=== PATIENT | female | born 1990 | race Caucasian/White ===

== ENCOUNTER 2023-08-18 08:29 | Inpatient (IN) ==
[2023-08-18] MEDS ORDERED: LIDOCAINE 1% LOCAL 20 ML VIAL INFIL PRN (09:16)
[2023-08-18] MEDS ORDERED: OXYTOCIN 30 UNITS/500 ML BAG IV PRN ×2 (09:16→15:06)
[2023-08-18] MEDS ORDERED: miSOPROStoL 50 MCG TAB PO ONE (09:16)
[2023-08-18 10:12] LABS: Hematocrit (blood only) 40.4 % (37.0-47.0); Hemoglobin 14.8 g/dl (12.0-16.0); Mean Corpuscular Hemoglobin 32.7 pg (25.0-34.0); Mean Corpuscular Hgb Conc 36.6 g/dL (32.0-36.0); Mean Corpuscular Volume 89.4 fL (80.0-100.0); Mean Platelet Volume 11.2 fL (9.4-12.4); Platelet Count 214 K/uL (130-400); RDW Coefficient of Variation 12.7 % (11.5-14.5); RDW Standard Deviation 41.8 fL (36.4-46.3); Red Blood Count 4.52 M/uL (4.20-5.40); White Blood Count 14.93 K/ul (4.8-10.8)
[2023-08-18] MEDS: LACTATED RINGER'S 1,000 ML IV PRN ×2 (11:40→12:55)
[2023-08-18] MEDS ORDERED: fentaNYL citrate PF 100 MCG/2 ML VIAL ONE (11:59)
[2023-08-18] MEDS ORDERED: SODIUM CHLORIDE 0.9% PF INJ 10 ML VIAL ONE (11:59)
[2023-08-18] MEDS ORDERED: ePHEDrine sulfate 50 MG/ML AMP ONE (11:59)
[2023-08-18] MEDS ORDERED: fentaNYL 2MCG/ML ROPIVACAINE 1.25MG/ML 100 ML BAG EPI ONE (12:00)
[2023-08-18] MEDS ORDERED: LIDOCAINE 2%/EPINEPHRINE 1:200,000 20 ML PF ONE (12:00)
[2023-08-18] MEDS ORDERED: BUPIVACAINE 0.25% PF 30 ML VIAL ONE (12:00)
[2023-08-18] MEDS ORDERED: LIDOCAINE 2%/EPINEPHRINE 1:200,000 20 ML PF EPI STA (12:31)
[2023-08-18] MEDS ORDERED: ePHEDrine sulfate 50 MG/ML AMP IV PRN (12:31)
[2023-08-18] MEDS ORDERED: LIDOCAINE 2% MPF LOCAL 5 ML VIAL EPI PRN (12:31)
[2023-08-18] MEDS ORDERED: NALBUPHINE HCL INJ 10 MG/ML AMP IV PRN (12:31)
[2023-08-18] MEDS ORDERED: NALOXONE HCL 0.4 MG/1 ML VIAL/CARP IV PRN (12:31)
[2023-08-18] MEDS ORDERED: BUPIVACAINE 0.25% PF 30 ML VIAL EPI STA (12:31)
[2023-08-18] MEDS ORDERED: ROPIVACAINE 0.5% PF 5 MG/ML 20 ML VIAL EPI PRN (12:31)
[2023-08-18] MEDS ORDERED: SODIUM CHLORIDE 0.9% PF INJ 10 ML VIAL EPI STA (12:31)
[2023-08-18] MEDS ORDERED: fentaNYL citrate PF 100 MCG/2 ML VIAL EPI PRN (12:31)
[2023-08-18] MEDS ORDERED: SODIUM CHLORIDE 0.9% PF INJ 10 ML VIAL EPI PRN (12:31)
[2023-08-18] MEDS ORDERED: fentaNYL citrate PF 100 MCG/2 ML VIAL EPI STA (12:31)
[2023-08-18] MEDS ORDERED: diphenhydrAMINE 50 MG/ML VIAL IV PRN (12:31)
[2023-08-18] MEDS ORDERED: fentaNYL 2MCG/ML ROPIVACAINE 1.25MG/ML 100 ML BAG EPI PRN (12:31)
[2023-08-18] MEDS ORDERED: BUPIVACAINE 0.25% PF 30 ML VIAL EPI PRN (12:31)
[2023-08-18] MEDS ORDERED: ONDANSETRON INJ 2 MG/ML 2 ML VIAL IV PRN (12:31)
[2023-08-18] MEDS ORDERED: NALOXONE HCL 1 MG in SODIUM CHLORIDE 0.9% 1,000 ML IV PRN (12:31)
--- NOTE | 2023-08-18 12:36 | Anesthesiology Consultation ---
Date of Service August 18, 2023 Assessment & Plan Chart Review Chart Review: Acceptable Risk for Labor Epidural Consults Requested none ASA ASA2 Proposed Anesthesia Anesthesia Type: Labor Epidural Risk / Benefits Reviewed With: PT / POA / Parent / Guardian, Accepts Plan and Informed Consent Obtained History Height/Weight Height: 5 ft 7 in Weight: 87.09 kg Allergies Allergy/AdvReac Type Severity Reaction Status Date / Time No Known Allergies Allergy Unverified 08/18/23 08:43 Medications Home Medications Medication Instructions Recorded Confirmed Last Taken + DHA 08/18/23 08/17/23 Active Medications Generic Name Dose Route Start Last Admin Trade Name Freq PRN Reason Stop Dose Admin Lactated Ringer's 1,000 mls @ 125 mls/hr 08/18/23 09:16 08/18/23 11:40 Lr IV 08/20/23 09:15 999 mls/hr .Q8H PRN Administration L&D Protocol Protocol Exercise / Class Metabolic Activity II 4-5 Yardwork/Stairs/Walk up hill Past Family History Family History Father Hypertension Cancer Grandmother (Maternal) Cancer Past Surgical History Surgical History S/P LASIK surgery of both eyes [place] teeth extracted Past Anesthesia History No Hx of Anesthesia Complications and No Family Hx of Anesthesia Complications History of PONV No Hx of PONV and No Hx of Motion Sickness Social History Smoking Status: Never smoker Hx Alcohol Use: No Hx Substance Use: No Physical Exam Vital Signs Last Vital Signs Temp 98.2 F 08/18/23 12:33 Pulse 58 L 08/18/23 12:31 Resp 18 08/18/23 12:33 BP 162/85 H 08/18/23 12:11 Pulse Ox 98 08/18/23 12:31 ENMT Mouth: no dentition abnormality Thyromental Distance: > or= 3.5 Finger Breadths Mallampati Class: II Neck normal visual inspection Respiratory normal respiratory effort Auscultation: lungs clear to auscultation bilaterally Cardiovascular Rate/Rhythm: regular rate and regular rhythm Testing Laboratory Results 08/18/23 09:39
[2023-08-18] MEDS ORDERED: ACETAMINOPHEN W/CODEINE #3 1 TAB PO PRN (15:06)
[2023-08-18] MEDS ORDERED: DIPHTHERIA/TETANUS/PERTUSSIS Vaccine (Tdap, Age 7+yrs) 0.5mL SYR/VL IM ONE (15:06)
[2023-08-18] MEDS ORDERED: HYDROCORTISONE ACETATE 25 MG SUPP PR PRN (15:06)
[2023-08-18] MEDS ORDERED: BENZOCAINE 20% SPRY 85 APPLN/85 GM CAN EXT PRN (15:06)
[2023-08-18] MEDS ORDERED: oxyCODONE/ACETAMINOPHEN 5mg/325mg TAB PO PRN (15:06)
[2023-08-18] MEDS ORDERED: bisacodyL 10 MG SUPP PR PRN (15:06)
[2023-08-18] MEDS ORDERED: ACETAMINOPHEN 325 MG TAB PO PRN (15:06)
[2023-08-18] MEDS: IBUPROFEN 600 MG TAB PO PRN ×2 (17:03→23:36)
--- NOTE | 2023-08-18 18:33 | Anesthesia Procedure Note ---
Date of Service August 18, 2023 Anesthesia Post Epidural Note Vital Signs Vital Signs: Temp Pulse Resp BP Pulse Ox O2 Del Method 98.1 F 62 18 126/80 97 Room Air 08/18/23 17:25 08/18/23 17:25 08/18/23 17:25 08/18/23 17:25 08/18/23 17:25 08/18/23 17:25 Pain Intensity Abdomen: Pain Intensity: 8 Notes Mental Status: alert / awake / arousable and participated in evaluation Nausea / Vomiting: adequately controlled Pain: adequately controlled Airway Patency, RR, SpO2: stable & adequate BP & HR: stable & adequate Hydration State: stable & adequate Neuraxial Anesthesia: was administered and sensory block is resolving Anesthetic Complications: no major complications apparent and Pt Satisfied with anesthetic care Epidural: Removed without complications and With tip intact
[2023-08-18] MEDS: DOCUSATE SODIUM 100 MG CAP PO SCH (21:24)
[2023-08-19 07:22] LABS: Hematocrit (blood only) 38.1 % (37.0-47.0); Hemoglobin 13.9 g/dl (12.0-16.0); Mean Corpuscular Hemoglobin 32.9 pg (25.0-34.0); Mean Corpuscular Hgb Conc 36.5 g/dL (32.0-36.0); Mean Corpuscular Volume 90.1 fL (80.0-100.0); Mean Platelet Volume 10.9 fL (9.4-12.4); Platelet Count 182 K/uL (130-400); RDW Coefficient of Variation 12.7 % (11.5-14.5); RDW Standard Deviation 41.5 fL (36.4-46.3); Red Blood Count 4.23 M/uL (4.20-5.40); White Blood Count 23.09 K/ul (4.8-10.8)
[2023-08-19] MEDS: IBUPROFEN 600 MG TAB PO PRN ×4 (08:02→23:33)
[2023-08-19] MEDS: PRENATAL VITAMIN 1 TAB PO SCH (08:03)
[2023-08-19] MEDS: DOCUSATE SODIUM 100 MG CAP PO SCH ×2 (08:03→21:15)
--- NOTE | 2023-08-19 09:26 | Obstetrical Progress Note ---
Date of Service August 19, 2023 Assessment & Plan Admission and Anticipated Discharge Date Admission Date: August 18, 2023 Subjective abdomen soft and non tender ambulating well no calf tenderness vaginal bleeding scant hgb 13.9 Results & Data Vital Signs (Past 12 Hours) Vital Signs Temp Pulse Pulse Resp BP BP Pulse Ox 08/19/23 08:00 36.7 C 67 14 127/82 99 08/19/23 03:05 36.6 C 57 L 18 126/78 98 08/18/23 23:15 36.6 C 54 L 18 129/79 96 O2 Del Method 08/19/23 08:00 Room Air 08/19/23 03:05 Room Air 08/18/23 23:15 Room Air
[2023-08-19] MEDS ORDERED: INFLUENZA VIRUS QUADRIVALENT VACCINE (IIV4) 0.5 ML SYR IM ONE (17:53)
[2023-08-19] MEDS ORDERED: bisacodyL 5 MG TABEC PO SCH (20:00)
[2023-08-20 06:36] LABS: Hematocrit (blood only) 40.1 % (37.0-47.0); Hemoglobin 14.5 g/dl (12.0-16.0)
[2023-08-20] MEDS: IBUPROFEN 600 MG TAB PO PRN (08:42)
[2023-08-20] MEDS: PRENATAL VITAMIN 1 TAB PO SCH (08:45)
--- NOTE | 2023-08-20 08:45 | Obstetrical Progress Note ---
Date of Service August 20, 2023 Assessment & Plan Admission and Anticipated Discharge Date Admission Date: August 18, 2023 Subjective abdomen soft and non tender no calf tenderness ambulating well vaginal bleeding scant hgb 14.5 Results & Data Vital Signs (Past 12 Hours) Vital Signs Temp Pulse Resp BP Pulse Ox O2 Del Method 08/19/23 23:50 36.6 C 65 16 128/81 97 Room Air
[2023-08-20] MEDS: DOCUSATE SODIUM 100 MG CAP PO SCH (08:46)
--- NOTE | 2023-08-27 12:16 | Delivery Summary ---
Vaginal Delivery Summary Date of Service August 27, 2023 Vaginal Delivery Summary Patient's been followed in our office for care and delivery. Patient's been well dated with a first trimester ultrasound. Patient was admitted to maternity at 38 weeks and 4 days gestation with tu rupture of membranes. Patient was given 1 dose of oral Cytotec 50 mcg. Patient had good strong contractions with a good labor pattern. Patient was given epidural for pain control. Patient went to full dilatation pushed out a live without difficulty. Patient had no perineal lacerations. An estimated blood loss was 100 mL.
== END 2023-08-20 15:10 | disposition home or self-care (01) | DRG 807 ==
LOC: OPB 08:29 → 4S1 08:30 → 4E2 17:19